=== PATIENT | female | born 1990 | race Caucasian/White ===

== ENCOUNTER 2019-06-19 20:59 | Emergency (ER) | payer OTHER ==
[~2019-06-19] VITALS: Ht 165.1 cm; Wt 101.7 kg
[~2019-06-19 20:59] MED LIST: HYDR25SU23 PR; IBUP-1542 PO; MECL25TA2 PO; NITR-58 PO; OFLO5DRO7 BOTH EARS; [UNRECOGNIZED DRUG - CODE]
[2019-06-19 21:14] VITALS: BP 121/72; PULSE 87; RESP 18; Ht 165.1 cm; Wt 101.7 kg
[2019-06-19] MEDS ORDERED: ACETAMINOPHEN 160 MG/5ML CUP PO STA (21:52)
[2019-06-19] MEDS ORDERED: IBUPROFEN LIQUID (PED) 20 MG/ML CUP PO STA (21:52)
--- NOTE | 2019-06-19 22:20 | ERD ---
ER Documentation Chief Complaint Chief Complaint HEMOHHROIDS WITH PAIN AND BLEEDING X4DAYS; PREV HX HPI This is a 28-year-old female with history of hemorrhoids presents to the ED complaining of rectal pain and bright red blood per rectum x4 days. Patient states she saw her primary care doctor who prescribed her topical hydrocortisone cream with intermittent relief of her symptoms. She reports itchiness to her rectal area, and blood when wiping. She denies any constipation. She states she has a history of hemorrhoids secondary to her . No abdominal pain, nausea vomiting. No other complaints. ROS All systems reviewed and are negative except as per history of present illness. Medications Home Meds Active Scripts Hydrocortisone Acetate (Anusol-Hc) 25 Mg Supp.rect, 1 SUPP NV BID PRN for HEMORROID PAIN/ITCHING, #12 SUPP.RECT Prov:MIREYA GALVAN PA-C 06/19/19 Ibuprofen* (Motrin*) 600 Mg Tab, 600 MG PO Q6, #30 TAB Prov:LEXI WALLACE PA-C 09/02/16 Nitrofurantoin Monohyd Macrocr* (Macrobid*) 100 Mg Capsr, 100 MG PO BID for 7 Days, CAP Prov:CARLYE FAYE PA-C 02/12/16 Meclizine Hcl* (Antivert*) 25 Mg Tablet, 25 MG PO Q6H PRN for dizziness, #20 TAB Prov:CARLEY FAYE PA-C 02/12/16 Ofloxacin* (Floxin* Otic) 0.3% -10 Ml Soln, 10 DROP BOTH EARS BID for 10 Days, BOTTLE Prov:CARLEY FAYE PA-C 07/08/15 Reported Medications Terbutaline Sulfate (Brethine) 5 Mg Tablet 10/06/10 Allergies Allergies: Coded Allergies: No Known Allergies (Verified Allergy, Mild, 09/29/10) PMhx/Soc History of Surgery: Yes () Anesthesia Reaction: No Hx Neurological Disorder: No Hx Respiratory Disorders: No Hx Cardiac Disorders: No Hx Psychiatric Problems: No Hx Miscellaneous Medical Probl: No Hx Alcohol Use: No Hx Substance Use: No Hx Tobacco Use: No FmHx Family History: No diabetes Physical Exam Vitals Vital Signs Date Temp Pulse Resp B/P (MAP) Pulse Ox O2 O2 Flow FiO2 Time Delivery Rate 06/19/19 98.5 87 18 121/72 98 21:14 (88) Physical Exam Const: No acute distress Head: Atraumatic Eyes: Normal Conjunctiva ENT: Normal External Ears, Nose and Mouth. Neck: Full range of motion. No meningismus. Resp: Clear to auscultation bilaterally Cardio: Regular rate and rhythm, no murmurs Abd: Soft, non tender, non distended. Normal bowel sounds Rectal Exam: Normal tone, No mass, Positive control, + external hemorrhoid appreciated, no thrombosed hemorrhoids, no anal fissures Skin: No petechiae or rashes Back: No midline or flank tenderness Ext: No cyanosis, or edema Neur: Awake and alert Psych: Normal Mood and Affect Results 24 hrs Current Medications Medications Dose Sig/Qamar Start Time Status Last (Trade) Ordered Route PRN Stop Time Admin Dose Reason Admin 180 mg ONCE STAT 06/19/19 DC Acetaminophen PO 21:52 06/19/19 (Tylenol 22:00 Liquid (Ped)) Ibuprofen 120 mg ONCE STAT 06/19/19 DC (Motrin PO 21:52 06/19/19 Liquid 22:00 (Ped)) Procedures/MDM MEDICAL DECISION MAKIN-year-old female with history of hemorrhoids presents with rectal pain and bright red blood per rectum. Patient has evidence of an external hemorrhoid on physical exam. There is no evidence of thrombosed hemorrhoids, perianal/rectal abscess or deep space tissue infection. I recommended she continue with topical steroids and Epsom salt baths as well. Patient will likely need surgical removal of her hemorrhoid. Department with her primary care doctor next week. Strict return precautions were discussed. PRESCRIPTIONS: Anusol SPECIALIST FOLLOW UP RECOMMENDED: None Departure Diagnosis: Primary Impression: Hemorrhoids Hemorrhoid type: unspecified Qualified Codes: K64.9 - Unspecified hemorrhoids Condition: Stable Patient Instructions: Hemorrhoids Additional Instructions: I RECOMMEND EPSOM SALT BATHS AT LEAST ONCE A DAY FOR 10 MINUTES TO HELP WITH PAIN RELIEF. FOLLOW UP WITH YOUR PRIMARY DOCTOR SCHEDULED. RETURN HERE FOR ANY NEW OR WORSENING SYMPTOMS. MIREYA GALVAN PA-C Jun 19, 2019 22:20
== END 2019-06-19 22:38 | disposition home or self-care (01) ==
LOC: FTE 20:59
DX: K64.9 Unspecified hemorrhoids (principal)
CPT/HCPCS: 99284